=== PATIENT | female | born 1945 | race Caucasian/White ===

== ENCOUNTER 2018-11-09 15:23 | Day surgery (SDC) | payer MEDICARE, MEDICAID ==
[2018-11-09] MEDS ORDERED: ONDANSETRON HCL INJ/PF 4 MG/2 ML SDV ONE (16:23)
[2018-11-09] MEDS ORDERED: DIPHENHYDRAMINE HCL 50 MG/ML VIAL ONE (16:23)
[2018-11-09] MEDS ORDERED: FENTANYL CITRATE INJ/PF 100 MCG/2 ML AMPUL ONE (16:24)
[2018-11-09] MEDS ORDERED: MIDAZOLAM 2 MG/2 ML INJ ONE (16:24)
[2018-11-09] MEDS ORDERED: NALOXONE HCL INJ/PF 0.4 MG/1 ML SDV ONE (16:24)
[2018-11-09] MEDS ORDERED: FLUMAZENIL INJ 0.5 MG/5 ML VIAL ONE (16:24)
[2018-11-09] MEDS ORDERED: GLUCAGON,HUMAN RECOMB 1 MG INJ ONE (16:25)
[2018-11-09] MEDS ORDERED: EPINEPHRINE INJ 1 MG/10 ML DISP.SYRIN ONE (16:25)
[2018-11-09] MEDS ORDERED: MIDAZOLAM 2 MG/2 ML INJ IV ONE ×2 (16:48→16:52)
[2018-11-09] MEDS ORDERED: FENTANYL CITRATE INJ/PF 100 MCG/2 ML AMPUL IV ONE ×2 (16:49→16:53)
--- NOTE | 2018-11-09 17:02 | Operative Report ---
Operative Report DATE OF SURGERY: 11/09/18 Operative Report: Pre-op diagnosis: History of cirrhosis, iron deficiency anemia and gastric vascular ectasia Post-op diagnosis: 1. Gastric antral vascular ectasia 2. Small esophageal varices Surgery: Esophagogastroduodenoscopy with ablation Medications: Versed 2mg Fentanyl 75mcg IV push Tissue removed: None Procedure: After informed consent obtained from patient, the throat was sprayed with Hurricane and conscious sedation was achieved. The upper endoscope was i nserted into the esophagus under direct vision and advanced into the stomach. The duodenum was entered and examined to the second part. Endoscope was then slowly pulled out of the patient as the mucosa was examined into details. Patient tolerated procedure well. Findings Esophagus: Small varices noted in the distal esophagus Z-line at: 37 cm Antrum: Areas of punctate erythema noted in the distal antrum which actually looks better than her last endoscopy that had definite evidence for watermelon stomach. This area was then ablated using the TTS ablation catheter Body: Normal Fundus: Normal Duodenum first part: Normal Duodenum second part: Normal Plan: Continue Nexium and follow-up H&H OPERATION: .
[2018-11-09 17:58] VITALS: BP 131/73
== END 2018-11-09 18:15 | disposition home or self-care (01) ==
LOC: END 15:23 → EDBD 16:00 → END 18:15
PROVIDERS: ATTEND Internal Medicine Gastroenterology
DX: K31.819 Angiodysplasia of stomach and duodenum without bleeding (principal); I85.00 Esophageal varices without bleeding; D50.0 Iron deficiency anemia secondary to blood loss (chronic); K74.69 Other cirrhosis of liver; K75.81 Nonalcoholic steatohepatitis (NASH); I10 Essential (primary) hypertension; E78.00 Pure hypercholesterolemia, unspecified; E11.9 Type 2 diabetes mellitus without complications; K21.9 Gastro-esophageal reflux disease without esophagitis; J45.909 Unspecified asthma, uncomplicated; Z79.899 Other long term (current) drug therapy; R16.0 Hepatomegaly, not elsewhere classified; K58.9 Irritable bowel syndrome, unspecified
CPT/HCPCS: 43270; 82962; J2250; J0171; J1200; J1610; J2310; J2405; J3010; J3490